=== PATIENT | male | born 1985 | race Hispanic/Latino ===

== ENCOUNTER 2016-10-03 20:04 | Emergency (ER) | payer OTHER ==
[~2016-10-03] VITALS: Ht 177.8 cm; Wt 86.4 kg
[~2016-10-03 20:04] MED LIST: AMOX-366 PO; CLON0.1T PO; HYDR-4003 PO; HYDR-656 PO; ONDA8TAB10 PO; SULF1TAB7 PO
[2016-10-03 20:08] VITALS: BP 99/66; PULSE 79; RESP 16; O2SAT 99
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
--- NOTE | 2016-10-03 21:03 | DRSVH ---
PROCEDURE: X-RAY LEFT FOOT COMPLETE, MINIMUM THREE VIEWS ([id number]) INDICATIONS: INJURY TECHNIQUE: 3 views of the foot were acquired. COMPARISON: None. FINDINGS: Bones: No fractures or dislocations. No suspicious bony lesions. Soft tissues: No tibiotalar joint effusion. Achilles tendon appears normal. There is metallic fore ign body seen in the margin of the distal left leg mid diaphysis of the fibula. IMPRESSION: No bony abnormality is seen in these 3 views of the left foot Dictated by: Francis Wakefield M.D. on 10/03/2016 at 20:59 Approved by: Francis Wakefield M.D. on 10/03/2016 at 21:00
== END 2016-10-03 22:01 | disposition home or self-care (01) ==
LOC: SED 20:04
DX: S90.32XA Contusion of left foot, initial encounter (principal); W22.09XA Striking against other stationary object, initial encounter; Y93.89 Activity, other specified; Y92.009 Unspecified place in unspecified non-institutional (private) residence as the place of occurrence of the external cause; Y99.8 Other external cause status; Z87.891 Personal history of nicotine dependence

== ENCOUNTER 2016-11-18 01:18 | Emergency (ER) | payer OTHER ==
[~2016-11-18] VITALS: Ht 167.6 cm; Wt 104.5 kg
[2016-11-18 01:25] VITALS: BP 145/91; RESP 18; O2SAT 97
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
[2016-11-18] MEDS ORDERED: Neomycin-Polymyxin-HC 10 mL Otic Solution RIGHT_EAR ONE (02:05)
[2016-11-18] MEDS ORDERED: Amoxicillin-Clav 875-125 mg Tablet PO ONE (02:05)
[2016-11-18] MEDS ORDERED: AMOX-366 PO (02:09)
== END 2016-11-18 02:41 | disposition home or self-care (01) ==
LOC: SED 01:18
DX: K04.7 Periapical abscess without sinus (principal); H60.91 Unspecified otitis externa, right ear; Z87.891 Personal history of nicotine dependence